=== PATIENT | female | born 1945 | race Caucasian/White ===

== ENCOUNTER 2017-01-13 15:18 | Outpatient (CLI) | payer MEDICARE ==
[~2017-01-13] VITALS: Ht 167.6 cm; Wt 63.6 kg
--- NOTE | ~2017-01-13 | HEMODYNAMI ---
PATIENT:RADHA DASH MEDICAL RECORD: [id number] : 45 [id number] ADMISSION DATE: 01/13/17 Generatedon:01/14/201710:19 Patient name: RADHA DASH Patient #: [id number] : 1945 Date of study: 01/14/2017 Page: Of Hemodynamic Procedure Report Patient Data Patient Demographics Procedure consent was obtained First Name: RADHA Gender: Female Last Name: HARDY : 1945 Patient #: [id number] Age: 71 year(s) Race: SSN: [id number] Additional ID: [id number] Contact details [address]: [address] [place] [address] State: [place] City: [place] Zip code: [address] Past Medical History Allergies Allergen Reaction Date Comments Reported Other allergy 01/14/2017 Latex, Prevacid Admission Admission Data Admission Date: 01/13/2017 Admission Time: 15:18 Arrival Date: 01/13/2017 Arrival Time: 15:18 Admit Source: Other Insurance Payor: Private Room #: [id number] health insurance Height (in.): 66 BSA: 1.72 (m2) Height (cm.): 167.64 BMI: 22.6 (kg/m2) Weight (lbs.): 140 Weight (kg.): 63.5 Lab Results Lab Result Date: 01/14/2017 Lab Result Time: 0:00 Biochemistry Name Units Result Min Max BUN mg/dl 22 --(----)-* 7 18 Creatinine mg/dl 1.1 --(--*-)-- 0.6 1.3 CBC Name Units Result Min Max Hemoglobin g/dl 13.4 -*(----)-- 13.5 17.5 Procedure Procedure Types Cath Procedure Diagnostic Procedure LHC LHC w/Coronaries w/Grafts PCI Procedure Coronary Stent Initial Miscellaneous Procedures Moderate Sedation up to 45 minutes Procedure Description Procedure Date Procedure Date: 01/14/2017 Procedure Start Time: 9:47 Procedure End Time: 10:12 Procedure Staff Name Function Billy Balderas MD Performing Physician Ana Horner RN Nurse Cierra Mosquera RT Monitor Maddy Bello RT Scrub Procedure Data Cath Procedure Fluoroscopy Diagnostic fluoroscopy Total fluoroscopy Time: 6.8 time: 6.8 min min Diagnostic fluoroscopy Total fluoroscopy dose: 708 dose: 708 mGy mGy Contrast Material Contrast Material Type Amount (ml) Isovue 300 122 Entry Location Entry Primary Successful Side Size Upsize Upsize Entry Closure Succes sful Closure Location (Fr) 1 (Fr) 2 (Fr) Remarks Device Remarks Femoral Right 5 Fr 6 Fr Exoseal artery Short Estimated blood loss: 5 ml Diagnostic catheters Device Type Used For End Catheter Placement Cordis 5Fr JL 4.0 Left Coronary Catheter (MP) Angiography Cordis 5Fr 3DRC Catheter Right Coronary (MP) Angiography Cordis 5Fr Pigtail LV Angiography Catheter (MP) Procedure Complications No complications Procedure Medications Medication Administration Route Dosage Oxygen NC 2 l/min Lidocaine 2% added to field 20 Heparin Flush Bag added to field 2 bags (1000units/500ml NS) 0.9% NaCl I.V. 100 ml/hr Versed I.V. 1 mg Fentanyl I.V. 50 mcg Versed I.V. 0.5 mg Fentanyl I.V. 25 mcg Vasotec 1.25 mg Heparin Bolus I.V. 4000 units Versed I.V. 0.5 mg Fentanyl I.V. 25 mcg Plavix P.O. 75 mg Hemodynamics Rest BSA: 1.72 (m2) HGB: 13.4 (g/dl) O2 Consumption: Estimated: 152.65 (ml/min) O2 Co nsumption indexed: Estimated:88.75 (ml/min/m) Heart Rate: 62 (bpm) Pressure Samples Time Site Value (mmHg) Purpose Heart Use Rate(bpm) 9:55 LV 193/11,17 Snapshot 58 9:56 AO 198/90(134) Pullback 60 9:56 LV 196/17,18 Pullback 60 Gradients Valve Time Site 1 Site 2 Mean SEP/DFP Peak To Heart Use (mmHg) (sec/min) Peak Rate (mmHg) (bpm) Aortic 9:56 LV AO 0 60 196/17,18 198/90(134) Calculations Valve P-P Mean Valve Index Valve Source Name Gradient Area Flow (cm2) Aortic 0 0 Snapshots Pre Cath Intra NCS Post Cath Vital Signs Time Heart Resp SPO2 etCO2 [id number] NIBP (mmHg) Rhythm Pain Sedatio n Rate (ipm) (%) (mmHg) (mmHg) Status Level (bpm) 9:38:06 63 15 100 0 0 No Cuff NSR 0 (11) 10(A) , No pain 9:42:12 62 16 100 0 0 204/106(175) NSR 0 (11) 10(A) , No pain 9:45:49 55 15 99 0 0 194/97(162) NSR 0 (11) 10(A) , No pain 9:50:13 53 19 100 0 0 203/93(181) NSR 0 (11) 10(A) , No pain 9:54:35 59 13 95 0 0 200/100(161) NSR 0 (11) 9(A) , No pain 10:00:03 60 17 96 0 0 187/86(152) NSR 0 (11) 9(A) , No pain 10:05:22 62 15 100 0 0 175/96(146) NSR 0 (11) 9(A) , No pain 10:10:50 74 16 100 0 0 188/106(156) NSR 0 (11) 10(A) , No pain Medications Time Medication Route Dose Verified Delivered Reason Notes Effectiveness by by 9:40:34 Oxygen NC 2 Billy Magdaie used for l/min [facility] meyers MD 9:40:42 Lidocaine 2% added 20ml Billy Billy for local to vial [facility] anesthetic field MD GOLD 9:40:49 Heparin Flush added 2 Billy Billy used for Bag to bags [facility] procedure (1000units/500ml field MD GOLD NS) 9:41:51 0.9% NaCl I.V. 100 Billy Magdaie Per physician ml/hr [facility] Horner RN, MD 9:42:00 Versed I.V. 1 mg Billy Magdaie for sedation [facility] Horner RN, MD 9:42:06 Fentanyl I.V. 50 Billy Magdaie for sedation mcg [facility] Horner RN, MD 9:48:52 Versed I.V. 0.5 Billy Manie for sedation mg [facility] Horner RN, MD 9:48:56 Fentanyl I.V. 25 Billy Perez for sedation mcg [facility] Horner RN, MD 9:51:01 Vasotec IV 1.25 Billy Perez Per physician mg [facility] Horner RN, MD 9:57:30 Heparin Bolus I.V. 4000 Billy Perez for verifi ed units [facility] Carlos Horner RN anticoagulation with dr MD hines 10:03:25 Versed I.V. 0.5 Billy Perez for sedation mg [facility] Carlos Horner RN, MD 10:03:30 Fentanyl I.V. 25 Billy Perez for sedation mcg [facility] Carlos Horner RN, MD 10:18:11 Plavix P.O. [address] [facility] Horner RN antiplatelet MD therapy Procedure Log Time Note 9::18 Informed consent obtained and on chart 9:: Admit Source: Other 9:: Arrival Date: 01/13/2017 3:18:00 PM 9:09:37 Insurance Payor : Private health insurance 9:10:17 Diagnostic Cath Status : Elective 9:11:05 Ana Horner RN sent for patient. Start room use. 9:11:06 Time tracking: Regular hours 9:11:11 Plan of Care:Hemodynamics will remain stable., Cardiac rhythm will remain stable., Comfort level will be maintained., Respiratory function will remain adequate., Patient/ family verbilizes understanding of procedure., Procedure tolerated without complication., Recovers from procedure without complications.. 9:18:57 Lab Result : Hemoglobin 13.4 g/dl 9:18:57 Lab Result : Creatinine 1.1 mg/dl 9:18:57 Lab Result : BUN 22 mg/dl 9:26:04 Patient received from Med II to CCL 1 Alert and oriented. Tansferred to table in Supine position. 9:26:06 Warm blankets applied, and nancy hugger turned on for patient comfort. 9:26:06 Correct patient and procedure confirmed by team. 9:26:07 ECG and BP/O2 sat monitors applied to patient. 9:33:13 ECG and BP/O2 sat monitors applied to patient. 9:33:15 Vital chart was started 9:33:16 Baseline sample Acquired. 9:33:21 Rhythm: sinus rhythm 9:33:23 Full Disclosure recording started 9:33:29 H&P Date Dictated: 01/14/2017 ER History on chart., New H&P dictated by physician.. 9:33:31 Pre-op teaching completed and patient verbalized understanding. 9:33:32 Pre-procedure instructions explained to patient. 9:33:33 Family in waiting room. 9:33:35 Patient NPO since Midnight. 9:33:55 Patient allergic to Other allergyLatex, Prevacid 9:34:00 Is the patient allergic to Iodine/contrast media? No. 9:34:03 Was the patient premedicated? No 9:34:05 Is patient on blood thinner?Yes 9:34:08 ACC The patient was administered the following blood thiners within the last 24 hours: ACCPlavix 9:34:10 Patient diabetic? Yes. 9:34:11 If diabetic: On Metformin? Yes 9:34:16 If on Metformin: Last Dose? 01/13/2017 9:34:22 Patient not . Patient is over age 55. 9:34:24 Previous problem with sedation/anesthesia? Yes throat adhesions 9:34:27 Snore? No 9:34:29 Sleep apnea? No 9:34:30 Deviated septum? No 9:34:30 Opens mouth fully? Yes 9:34:31 Sticks out tongue? Yes 9:34:38 Airway obstruction? Yes asthma 9:34:58 Dentures? No ? 9:35:03 Pre procedure: right dorsailis pedis pulse 1+ Palpable, but thready & weak; easily obliterated 9:35:06 Pre procedure: left dorsailis pedis pulse 2+ Normal; easily identifiable; not easily obliterated 9:35:15 Lab results completed and on chart. 9:35:22 Right groin area was prepped with chlora-prep and draped in sterile fashion 9:35:23 Alarms reviewed by R. N. 9:35:23 Sharps counted by scrub and verified by R.N. 9:35:25 Physician arrived 9:35:26 --------ALL STOP TIME OUT------ 9:35:27 Final Timeout: patient, procedure, and site verified with staff and physician. All members of the team are in agreement. 9:35:29 Right groin site verified by team. 9:35:33 Physical assessment completed. ASA score P 2 - A patient with mild systemic disease as per Billy Balderas MD. 9:35:37 Sedation plan: IV Moderate Sedation Versed, Fentanyl 9:38:07 Use device set Femoral Dx 9:38:08 Acist Syringe opened to sterile field. 9:38:09 Bag Decanter opened to sterile field. 9:38:09 Medline Cath Pack opened to sterile field. 9:38:10 Terumo 5Fr Sheridan Sheath opened to sterile field. 9:38:10 [facility] 260cm J .035 wire opened to sterile field. 9:38:11 Acist Hand Control opened to sterile field. 9:38:12 Acist Manifold opened to sterile field. 9:38:12 Diagnostic Infinity 5Fr Multipack catheter opened to sterile field. 9:38:12 Tegaderm 4 x 4 opened to sterile field. 9:39:01 Patient Weight : 140 kg 9:39:06 Patient Height : 66 cm 9:40:34 Oxygen 2 l/min NC was administered by Ana Horner RN; used for procedure; 9:40:42 Lidocaine 2% 20ml vial added to field was administered by Billy Balderas MD; for local anesthetic; 9:40:49 Heparin Flush Bag (1000units/500ml NS) 2 bags added to field was administered by Billy Balderas MD; used for procedure; 9:41:51 0.9% NaCl 100 ml/hr I.V. was administered by Ana Horner RN; Per physician; 9:42:00 Versed 1 mg I.V. was administered by Ana Horner RN; for sedation; 9:42:06 Fentanyl 50 mcg I.V. was administered by Ana Horner RN; for sedation; 9:47:25 Procedure started. 9:47:32 Local anesthetic to right femoral artery with Lidocaine 2% by Billy Balderas MD.INITIAL ACCESS ONLY 9:47:43 A 5 Fr sheath was inserted into the Right Femoral artery 9:47:51 A Cordis 5Fr JL 4.0 Catheter (JAMIE) was advanced over the wire and used for Left Coronary Angiography. 9:48:52 Versed 0.5 mg I.V. was administered by Ana Horner RN; for sedation; 9:48:56 Fentanyl 25 mcg I.V. was administered by Ana Horner RN; for sedation; 9:49:05 Zero performed for pressure channel P1 9:49:13 Zero performed for pressure channel P1 9:49:34 Injector settings: Ml/sec: 3, Volume: 6, 9:50:35 Zero performed for pressure channel P1 9:50:51 Catheter removed. 9:50:56 A Cordis 5Fr 3DRC Catheter (MP) was advanced over the wire and used for Right Coronary Angiography. 9:51:01 Vasotec 1.25 mg IV was administered by Ana Horner RN; Per physician; 9:51:43 RCA angiography performed. 9:51:46 Injector settings: Ml/sec: 3, Volume: 6, 9:51:56 SVG angiography performed. 9:52:50 BOBO angiography performed. 9:54:03 Catheter removed. 9:54:09 A Cordis 5Fr Pigtail Catheter (MP) was advanced over the wire and used for LV Angiography. 9:54:37 Terumo 6Fr Sheridan Sheath opened to sterile field. 9:54:37 [employer] BasixCompak Inflation Kit opened to sterile field. 9:54:38 Monterroso Whisper J 300cm 0.014 guide wire opened to sterile field. 9:56:00 LV hemodynamics recorded. 9:56:02 LV gram done using SNOW 9:56:04 Injector settings: Ml/sec: 5, Volume: 15, 9:56:19 EF : 55 % 9:56:21 Catheter removed. 9:56:22 Proceeding to intervention. 9:56:29 Sheath upsized to a 6 Fr Short. 9:57:04 Medtronic Launcher 6Fr AR 1.0 guide catheter opened to sterile field. 9:57:09 6 Fr ar 1 guide catheter was inserted over the wire 9:57:30 Heparin Bolus 4000 units I.V. was administered by Ana Horner RN; for anticoagulation; verified with dr hines 10:00:10 Guide Catheter removed. unable to cannulate vessel. 10:00:19 Medtronic Launcher 6Fr AR 1.0 SH guide catheter opened to sterile field. 10:00:56 6 Fr ar 1 sh guide catheter was inserted over the wire 10:03:25 Versed 0.5 mg I.V. was administered by Ana Horner RN; for sedation; 10:03:30 Fentanyl 25 mcg I.V. was administered by Ana Horner RN; for sedation; 10:04:02 whisper wire advanced. 10:04:06 Wire advanced across lesion. 10:05:48 Inflation Number: 1 A Reagan OTW 2.5 x 12 stent was prepped and advanced across the Dist RCA. The stent was deployed at 11 AZIZA for 0:10 (min:sec). 10:06:26 Stent catheter was removed intact over wire. 10:09:14 Inflation Number: 1 A Victoria OTW 3.0 x 18 stent was prepped and advanced across the Prox RCA. The stent was deployed at 16 AZIZA for 0:10 (min:sec). 10:09:37 Stent catheter was removed intact over wire. 10:09:38 Wire removed. 10:09:39 Guide catheter removed. 10:09:52 Cordis 6Fr Exoseal opened to sterile field. 10:10:04 Sheath removed intact; hemostasis achieved with Exoseal to the Right Femoral artery. 10:10:06 Procedure ended.(Physican Out) 10:10:48 Fluoroscopy time 06.80 minutes. 10:10:52 Fluoroscopy dose: 708 mGy 10:10:52 Flurop Dose total: 708 10:10:57 Contrast amount:Isovue 300 122ml. 10:10:59 Sharps counted by scrub and verified by R.N. 10:11:02 Insertion/operative site no bleeding no hematoma. 10:11:06 Post-op/insertion site Right Femoral artery dressed using a 4 x 4 and Tegaderm. 10:11:10 Post right femoral artery:stable 10:11:12 Post Procedure Pulses reassessed and unchanged 10:11:14 Post procedure rhythm: unchanged. 10:11:17 Estimated blood loss: 5 ml 10:11:18 Post procedure instruction explained to patient.Patient verbalizes understanding. 10:11:19 Patient needs reinforcement of post procedure teaching. 10:11:44 Procedure type changed to Cath procedure, Diagnostic procedure, LHC, LHC w/Coronaries w/Grafts, PCI procedure, Coronary Stent Initial, Miscellaneous Procedures, Moderate Sedation up to 45 minutes 10:11:45 Procedure and supply charges have been captured, reviewed, submitted and are correct. 10:11:49 Procedure Complication : No complications 10:11:52 Vital chart was stopped 10:11:52 See physician's report for complete and final results. 10:11:56 Report given to Med II. 10:11:59 Patient transfered to [facility] II with Stretcher. 10:12:02 Procedure ended. 10:12:02 Full Disclosure recording stopped 10:13:00 ACC-PCI Only Patient was given prescriptions, or instructed by Billy Balderas MD to start/continue the following medications upon discharge: Plavix 10:13:08 End room use (Document Last) 10:18:11 Plavix 75 mg P.O. was administered by Ana Horner RN; for antiplatelet therapy; Intervention Summary Intervention Notes Time ActionType Lesion and Equipment Action# Pressure Duration Attributes Used 10:05:48 Place stent Dist RCA Victoria OTW 1 11 00:10 2.5 x 12 stent 10:09:14 Place stent Prox RCA Victoria OTW 1 16 00:10 3.0 x 18 stent Device Usage Item Name Manufacture Quantity Catalog Hospital Part Current Minima l Lot# / Number Charge Number Stock Stock Serial# Code Acist Acist 1 22972 479842 280787 470815 20 Syringe Medical Systems Inc Bag Microtek 1 2002S 188117 21950 488839 5 DecSpecle Medical Inc. Medline Cardinal 1 [id number] 522912 62189 832903 5 Cath Pack Health Terumo 5Fr Terumo 1 [id number] 301361 315729 997672 [address] [facility] 1 046605 140611 427384 735465 30 260cm J .035 wire Acist Hand Acist 1 27782 336032 249709 747884 5 Control Medical Systems Inc Acist Acist 1 83333 900178 091553 312836 5 Desktop Genetics Medical Systems Inc Diagnostic Cardinal 1 [id number] 227827 23477 203606 30 Infinity Health 5Fr Multipack catheter Tegaderm 4 3M 1 1626W 497566 302913 615237 5 x 4 Cordis 5Fr Cardinal 1 327451 5 JL 4.0 Health Catheter (MP) Cordis 5Fr Cardinal 1 631658 5 3DRC Health Catheter (MP) Cordis 5Fr Cardinal 1 464232 5 Pigtail Health Catheter (MP) Terumo 6Fr Terumo 1 [id number] 595641 639860 179129 40 Sheridan Sheath Merit Merit 1 NF3412 835896 250722 028168 15 BasenGene Medical Inflation Kit Monterroso Monterroso 1 [id number] 507015 909329 656348 5 Whisper J Vascular 300cm 0.014 guide wire Medtronic Medtronic 1 [id number] 575760 49339 765806 1 Launcher 6Fr AR 1.0 guide catheter Medtronic Medtronic 1 [id number] 503523 35082 436855 1 Launcher 6Fr AR 1.0 SH guide catheter Reagan OTW Medtronic 1 [id number] 199286 19227 028533 5 [id number] 2.5 x 12 stent Reagan OTW Medtronic 1 [id number] 746463 2016298 333164 5 [id number] 3.0 x 18 stent Cordis 6Fr Cardinal 1 [id number] 540012 092651 890050 10 [facility] Yellowsmith Signature Audit [place] Stage Time Signature Unsigned Intra-Procedure 01/14/2017 Cierra Mosquera 10:19:20 AM RT(R) Signatures Monitor : Cierra Mosquera RT Signature : Date : Time : [id number] [place] [address]
[2017-01-13 16:32] LABS: BASOPHILS 0.5 % (0-2); EOSINOPHILS 3.7 % (0-7); HEMOGLOBIN 13.4 g/dL (12-16); IMMATURE GRANULOCYTES 0.2 % (0-5); LYMPHOCYTES 29.3 % (15-50); MCHC 33.5 g/dL (31.0-37.0); MCV 89.5 fL (80.0-100.0); MEAN PLATELET VOLUME 10.8 fL (7.4-10.4); MONOCYTES 8.4 % (2-11); NEUTROPHILS 57.9 % (40-80); PLATELET COUNT 250 10x3/uL (130-400); RBC 4.47 10x6/uL (4.00-5.40); RDW 14.3 % (11.5-14.5); WBC 6.5 10x3/uL (4.8-10.8)
[2017-01-13 16:41] LABS: ALBUMIN 3.7 g/dL (3.4-5.0); ALKALINE PHOSPHATASE 61 U/L (46-116); ALT (SGPT) 20 U/L (10-68); CALC OSMOLALITY 281 mosm/kg (275-300); CALCIUM 9.2 mg/dL (8.5-10.1); CARBON DIOXIDE 24.8 mmol/L (21.0-32.0); CHLORIDE - SERUM 103 mmol/L (98-107); CREATININE - SERUM 1.1 mg/dL (0.6-1.3); GLUCOSE 99 mg/dL (74-106); POTASSIUM - SERUM 3.8 mmol/L (3.5-5.1); PROTEIN - SERUM 6.9 g/dL (6.4-8.2); SODIUM 140 mmol/L (136-145); UREA NITROGEN 22 mg/dL (7-18); eGFR NON AFRICAN AMERICAN 52 mL/min (90-120)
[2017-01-13 16:54] LABS: CKMB 0.5 U/L (0.0-3.6); CREATINE KINASE 74 UL (21-215)
[2017-01-13] MEDS ORDERED: JARDIANCE25 MG PO (20:17)
[2017-01-13] MEDS ORDERED: BYSTOLIC5 MG PO (20:17)
[2017-01-13] MEDS ORDERED: ISOSORBIDE MONO30 M1 PO (20:17)
[2017-01-13] MEDS ORDERED: AMBIEN5 MG PO (20:19)
[2017-01-13] MEDS ORDERED: LISINOPRIL5 MG PO (20:23)
[2017-01-13] MEDS ORDERED: BAYER CHEWABLE81 MG PO (20:24)
[2017-01-13] MEDS ORDERED: NEURONTIN 300300 MG PO (20:27)
[2017-01-13 22:35] VITALS: Ht 167.6 cm; Wt 63.6 kg
[2017-01-14] VITALS: BP 148/72
[2017-01-14 04:00] VITALS: BP 181/82
--- NOTE | 2017-01-14 07:20 | NUR ---
PT SITTING UP IN BED DENIES ANY NEEDS WILL CONT TO MONITOR
[2017-01-14 08:39] VITALS: BP 182/87
--- NOTE | 2017-01-14 09:16 | NUR ---
PT PREOPED FOR HEART CATH. NO NITRO PASTE ON FLOOR. BUFFY BARRIOS FROM HEEL SEAT FITTER AWARE I DID NOT GIVE.
--- NOTE | 2017-01-14 10:43 | NUR ---
PT IS BACK FROM [employer] PROFESSOR ALERT AND AWAKE R GROIN SITE IS WNL AT BEDSIDE. VS ARE WNL WITH EXCEPTION OF ELEVATED BP, DR DENNISON AWARE AND ORDERED LISINOPRIL WILL GIVE. WILL CONT TO MONITOR.
[2017-01-14] MEDS ORDERED: PLAVIX75 MG PO (10:46)
[2017-01-14] MEDS ORDERED: LISINOPRIL10 MG PO (10:46)
[2017-01-14 11:29] LABS: BASOPHILS 0.8 % (0-2); EOSINOPHILS 4.7 % (0-7); HEMATOCRIT 39.1 % (36.0-48.0); IMMATURE GRANULOCYTES 0.2 % (0-5); LYMPHOCYTES 33.1 % (15-50); MCH 29.5 pg (26.0-34.0); MCHC 33.2 g/dL (31.0-37.0); MCV 88.9 fL (80.0-100.0); MEAN PLATELET VOLUME 10.7 fL (7.4-10.4); MONOCYTES 8.5 % (2-11); NEUTROPHILS 52.7 % (40-80); PLATELET COUNT 228 10x3/uL (130-400); RDW 14.1 % (11.5-14.5); WBC 5.1 10x3/uL (4.8-10.8)
[2017-01-14 11:36] LABS: ANION GAP 12.4 mmol/L (8-16); CALCIUM 8.7 mg/dL (8.5-10.1); CARBON DIOXIDE 26.7 mmol/L (21.0-32.0); CREATININE - SERUM 0.9 mg/dL (0.6-1.3); POTASSIUM - SERUM 4.1 mmol/L (3.5-5.1)
[2017-01-14 13:00] VITALS: BP 160/92
--- NOTE | 2017-01-14 14:40 | NUR ---
WENT OVER DC PAPERWORK WITH PT AND BOTH VERBALIZE UNDERSTANDING. DC PIV WITH CATH TIP INTACT. DC TELE. PT HAS SCRIPTS FOR PLAVIX AND LISINOPRIL. R GROIN SITE IS STILL WNL BP IS RESOLVED FROM 195/98 TO 156/86 NOW. WHEELED PT OUT TO FRONT ENTRANCE AND TOOK HER HOME
--- NOTE | 2017-01-16 10:28 | HP ---
PATIENT: RADHA DASH MEDICAL RECORD: [id number] ACCOUNT: [id number] LOCATION:[facility] : 45 ADMISSION DATE: 01/13/17 HISTORY AND PHYSICAL EXAMINATION HISTORY OF PRESENT ILLNESS: A 71-year-old female with a history of coronary disease, status post intervention, has a history of hypertension, postop CABG, sometimes hypoglottis and vocal cords difficulties with dysphagia and dysarthria, this improved somewhat although he may have been having more dyspnea on exertion. He had classic exertional angina, chest tightness and pressure. We are asked to see her concerning her cardiovascular status. PAST MEDICAL HISTORY: 1. He has a history of hypertension. 2. Hyperlipidemia. 3. Gastroesophageal reflux disease. 4. Diabetes mellitus. ALLERGIES: PREVACID AND LATEX. SOCIAL HISTORY: , lives in [place]. She is a nonsmoker. She takes care all of her ADLs. MEDICATIONS: Typically include Imdur 30 every day, lisinopril 5 q.h.s., Bystolic 5 every day, aspirin 81 every day, Neurontin 600 b.i.d., Ambien 5 q.h.s., Jardiance 5/25 every day. REVIEW OF SYSTEMS: The patient reports easy bruising but reports no swollen glands. The patient reports no fever, no night sweats, no significant weight gain, no significant weight loss. No significant exercise tolerance. The patient reports no dry eyes, no irritation, no vision change. Patient reports no difficulty hearing and no ear pain. Patient reports no frequent nose bleeds or nose and sinus problems. Patient reports on arm pain on exertion. No shortness of breath while lying down. No history of heart murmur. Patient reports no cough, no wheezing or coughing up blood. Patient reports no abdominal pain, no vomiting. Normal appetite. No diarrhea and not vomiting blood. No nausea and no constipation. Patient reports no incontinence. No difficulty urinating. No hematuria. No increased frequency. Patient reports no muscle aches. No weakness, no arthralgias, no back pain. No swelling of the extremities. Patient reports no abnormal mole, no jaundice, no rashes. Reports no loss of consciousness. No weakness and no numbness. No seizures, dizziness, or headaches. The patient reports no depression, no sleep disturbance, feeling safe in a relationship and no alcohol abuse. Patient reports on fatigue. Reports no runny nose or sinus pressure. No itching, no hives, and no frequent sneezing. PHYSICAL EXAMINATION: GENERAL: Pleasant gentleman in no acute distress, appears stated age. Speech is easily understandable. VITAL SIGNS: Blood pressure 182/87, pulse 60 and regular. HEENT: Normocephalic, atraumatic. NECK: No bruits noted. HEART: Regular. LUNGS: Good air excursion. ABDOMEN: Soft, nontender. HISTORY AND PHYSICAL [id number] RADHA DASH EXTREMITIES: Pulse are well preserved, 2+ with no edema. NEUROLOGIC: Grossly intact. DIAGNOSTIC DATA: ECG without acute change. IMPRESSION: Exertional angina of close to 4 years out from bypass grafting. PLAN: Diagnostic angiography, intervention based on the above. TRANSINT:[id number] Voice Confirmation ID: [id number] DOCUMENT ID: [id number] CRIS ORDONEZ MD at 1028 CC: [id number] DICTATION DATE: 01/14/17937 PSYCHIATRIC RN: 01/14/17 1012 DEP CLI 01/14/17 [facility] [address] [place] [address]
--- NOTE | 2017-01-16 10:28 | OP ---
PATIENT NAME: RADHA DASH MEDICAL RECORD: [id number] :45 LOCATION:D.CAT ADMISSION DATE: SURGEON: CRIS ORDONEZ MD DATE OF OPERATION: 01/14/2017 PROCEDURES: Left heart catheterization, selective coronary angiography, right femoral artery approach. CATHETERS: A 5-[place]izen [place] sheath, 5/4 left and right Hai, 5/4 pig. The procedure was well tolerated and the patient returned to the rush. Sheath removed. ExoSeal device placed. FINDINGS: Left ventriculography in 30-degree SNOW view: Normal wall motion, normal systolic function. CORONARY ANATOMY: LEFT MAIN: Left main is free of disease. LAD: Has minimal luminal irregularities, but no significant stenosis. CIRCUMFLEX: Again, seen filling via the bypass graft to the right coronary artery, somewhat codominant system. This has 2 sequential stenoses of 80%, 1 distally and 1 more diffuse more proximally, both were 80%. BYPASS GRAFTS: 1. Saphenous vein graft to circumflex is widely patent throughout its course without evidence of post-anastomotic stenosis. 2. BOBO to LAD is atretic. PLAN: Intervention of the right momentarily. DESCRIPTION OF PROCEDURE: A 5-[place]izen [place] sheath was changed for a 6-[place] sheath. AR guiding catheter with side holes provided good catheter support. A 300 cm Whisper wire was placed across both occlusions in the right coronary artery down to this portion of vessel. Distal stent deployed was a 2.5 x 12 Saucier drug-eluting stent up to 14 atmospheres and the more proximally with 3.0 x 18 Reagan drug-eluting stent addressed the diffuse 80% stenosis. Final angiography shows excellent resolution of two 80% stenoses and no significant residual. RAKESH flow was 3 throughout the procedure. There was actually nice pumping in the distal vasculature in the right coronary artery. Sheath was closed with ExoSeal device. TRANSINT:[id number] Voice Confirmation ID: [id number] DOCUMENT ID: [id number] CRIS ORDONEZ MD at 1028 CC: [id number] DICTATION DATE: 01/14/17 1020 AUTOCAD OPERATOR: 01/14/17 1113 DEP CLI 01/14/17 [id number] [place] [address]
== END 2017-01-14 14:44 | disposition home or self-care (01) ==
LOC: D.ER 15:18 → D.CATH 15:18 → EDSTATUS 19:01 → D.M2 19:05 → D.CATH 01-14 14:44
PROVIDERS: Emergency Medicine; Internal Medicine Interventional Cardiology
DX: I25.119 Atherosclerotic heart disease of native coronary artery with unspecified angina pectoris (principal); Z95.1 Presence of aortocoronary bypass graft; I10 Essential (primary) hypertension; E11.9 Type 2 diabetes mellitus without complications; E78.5 Hyperlipidemia, unspecified; K21.9 Gastro-esophageal reflux disease without esophagitis; Z01.812 Encounter for preprocedural laboratory examination
CPT/HCPCS: 93459; C9600

== ENCOUNTER 2018-08-16 11:18 | Outpatient (CLI) | payer OTHER ==
[~2018-08-16] VITALS: Ht 167.6 cm; Wt 61.4 kg
--- NOTE | ~2018-08-16 | OP ---
PATIENT NAME: RADHA DASH I MEDICAL RECORD: [id number] :45 LOCATION:D.CAT ADMISSION DATE: SURGEON: CRIS ORDONEZ MD DATE OF OPERATION: 08/16/2018 PROCEDURES: Left heart catheterization, selective coronary angiography, right femoral artery approach. CATHETERS: A 5-Stateless sheath, 5/4 left and right Hai, 5/4 pig. The procedure was tolerated. The patient returned to the rush. Sheath removed. ExoSeal device was placed. FINDINGS: Left ventriculography in 30-degree SNOW view: Normal wall motion. Normal systolic function. CORONARY ANATOMY: LEFT MAIN: Left main is free of disease. LAD: LAD shows luminal irregularities, but is free of flow obstructive disease. CIRCUMFLEX: Totally occluded, fills via a bypass graft. RIGHT CORONARY ARTERY: An area of previous stenting is widely patent. Between the 2 previously placed stents, had about 80% stenosis. Also, there is no end-stent restenosis at the distal portion of the distal stent. PLAN: Intervention momentarily. DESCRIPTION OF PROCEDURE: A 5-Stateless sheath was exchanged for a 6-Stateless sheath. AR with side holes provided good guide catheter support followed by 300 cm Whisper wire. Pre-deployment balloon was a 2.5 x 15 mm C[place]. Stents deployed were a 2.5 x 18 mm Reagan drug-eluting stent distally, at the area of end-stent restenosis and the stenosis between the 2 previously placed stents was addressed with a 3.0 x 15 mm [place] drug-eluting stent. Final angiography shows excellent resolution of a distal 90% stenosis and a mid 80% stenosis and no significant residual. RAKESH flow was 3 throughout the procedure. Integrilin was used during the case. Sheath closed with ExoSeal device. TRANSINT:[id number] Voice Confirmation ID: [id number] DOCUMENT ID: [id number] CRIS ORDONEZ MD CC: [id number] DICTATION DATE: 08/16/18 1337 PRESS SUPERVISOR: 08/16/18 1410 [facility] [address] [facility] [place] [address]
--- NOTE | ~2018-08-16 | HEMODYNAMI ---
PATIENT:RADHA DASH I MEDICAL RECORD: [id number] : 45 LOCATION:DJuanCAT ADMISSION DATE: 08/16/18 Generatedon:08/16/201813:38 Patient name: RADHA DASH Patient #: [id number] : 1945 Date of study: 08/16/2018 Page: Of Hemodynamic Procedure Report Patient Data Patient Demographics Procedure consent was obtained First Name: RADHA Gender: Female Last Name: HARDY : 1945 Middle Initial: I Age: 73 year(s) Patient #: [id number] Race: SSN: [id number] Additional ID: [id number] Contact details Address: [address] [place] [address] State: [place] City: [place] Zip code: [address] Past Medical History Allergies Allergen Reaction Date Comments Reported Other allergy 01/14/2017 Latex, Prevacid Other allergy 08/16/2018 LATEX, NEXIUM Admission Admission Data Admission Date: 08/16/2018 Admission Time: 11:18 Admit Source: Other Height (in.): 65.75 BSA: 1.69 (m2) Height (cm.): 167 BMI: 21.87 (kg/m2) Weight (lbs.): 134.48 Weight (kg.): 61 Lab Results Lab Result Date: 08/16/2018 Lab Result Time: 0:00 Biochemistry Name Units Result Min Max BUN mg/dl 25 --(----)-* 7 18 Creatinine mg/dl 1 --(--*-)-- 0.6 1.3 CBC Name Units Result Min Max Hemoglobin g/dl 11.7 *-(----)-- 13.5 17.5 Procedure Procedure Types Cath Procedure Diagnostic Procedure LHC LHC w/Coronaries w/Grafts Sedation Charges Moderate Sedation up to 15 minutes PCI Procedure Coronary Stent Coronary Stent Initial Procedure Description Procedure Date Procedure Date: 08/16/2018 Procedure Start Time: 13:09 Procedure End Time: 13:35 Procedure Staff Name Function Billy Giraldo MD Performing Physician Cierra Mosquera RT Scrub Sophie Leroy RN Nurse Eileen Tejeda RT Monitor Procedure Data Cath Procedure Fluoroscopy Diagnostic fluoroscopy Total fluoroscopy Time: 6.3 time: 6.3 min min Diagnostic fluoroscopy Total fluoroscopy dose: 697 dose: 697 mGy mGy Contrast Material Contrast Material Type Amount (ml) Isovue 300 118 Entry Location Entry Primary Successful Side Size Upsize Upsize Entry Closure Succes sful Closure Location (Fr) 1 (Fr) 2 (Fr) Remarks Device Remarks Femoral Right 5 Fr 6 Fr Exoseal artery Short Estimated blood loss: 10 ml Diagnostic catheters Device Type Used For End Catheter Placement MULTIPACK JL 4.0 5Fr Procedure catheter MULTIPACK 3DRC 5Fr Procedure catheter MULTIPACK Pigtail 5 Fr Procedure catheter Procedure Complications No complications Procedure Medications Medication Administration Route Dosage 0.9% NaCl I.V. 100 ml/hr Oxygen etCO2 Nasal cannula 2 l/min Lidocaine 2% added to field 20 Heparin Flush Bag added to field 2 bags (1000units/500ml NS) Versed I.V. 2 mg Fentanyl I.V. 50 mcg Heparin Bolus I.V. 5000 units Nitroglycerin IC/IA I.C. 200 mcg Hemodynamics Rest BSA: 1.69 (m2) HGB: 11.7 (g/dl) O2 Consumption: Estimated: 143.46 (ml/min) O2 Co nsumption indexed: Estimated:84.89 (ml/min/m) Heart Rate: 53 (bpm) Pressure Samples Time Site Value (mmHg) Purpose Heart Use Rate(bpm) 13:14 LV 152/9,15 Snapshot 55 Gradients Valve Time Site Site Mean SEP/DFP Peak To Heart Use 1 2 (mmHg) (sec/min) Peak Rate (mmHg) (bpm) Aortic 13:15 LV AO 54 Snapshots Pre Cath Intra NCS Post Cath Vital Signs Time Heart Resp SPO2 etCO2 NIBP (mmHg) Rhythm Pain Sedation Rate (ipm) (%) (mmHg) Status Level (bpm) 12:58:26 50 19 100 25.6 184/80(159) SB 0 (11) 10(A) , No pain 13:03:48 53 12 100 27 164/79(101) SB 0 (11) 10(A) , No pain 13:08:10 53 18 97 30 143/74(93) SB 0 (11) 9(A) , No pain 13:13:23 53 16 100 34 136/64(87) SB 0 (11) 9(A) , No pain 13:17:43 52 18 100 27.8 139/67(86) SB 0 (11) 9(A) , No pain 13:22:03 55 18 100 30 130/68(87) SB 0 (11) 9(A) , No pain 13:26:22 55 19 100 31.2 140/68(93) SB 0 (11) 9(A) , No pain 13:31:45 63 15 100 32.4 143/61(93) SB 0 (11) 10(A) , No pain 13:36:44 53 11 99 34.6 169/75(130) SB 0 (11) 10(A) , No pain Medications Time Medication Route Dose Verified Delivered Reason Notes Effectiveness by by 12:59:51 0.9% NaCl I.V. 100 Billy Barrios used for ml/hr [place] [facility] procedure MD MURPHY 12:59:58 Oxygen etCO2 2 Billy Copelanda used for Nasal l/min [place] [facility] procedure cannula MD MURPHY 13:00:05 Lidocaine 2% added 20ml Billy Cervantes for local to vial [facility] anesthetic field MD GOLD 13:00:09 Heparin Flush added 2 Billy Cervantes used for Bag to bags [facility] procedure (1000units/500ml field MD GOLD NS) 13:06:26 Versed I.V. 2 mg Billy Copelanda for sedation [facility] Leroy MD, RN 13:06:30 Fentanyl I.V. 50 Billy Copelanda for sedation mcg [facility] Leroy MD, RN 13:19:10 Heparin Bolus I.V. 5000 Billy Barrios for verif ied units [facility] anticoagulation with Dr. MD MURPHY [place] 13:30:28 Nitroglycerin I.C. 200 Billy Cervantes for IC/IA mcg [facility] Carlos mirza MD, MD Procedure Log Time Note 12:38:25 Informed consent obtained and on chart 12:38:29 Diagnostic Cath Status : Elective 12:39:10 Sophie Leroy RN sent for patient. Start room use. 12:39:12 Time tracking: Regular hours (M-F 7:00 - 5:00) 12:39:17 Plan of Care:Hemodynamics will remain stable., Cardiac rhythm will remain stable., Comfort level will be maintained., Respiratory function will remain adequate., Patient/ family verbilizes understanding of procedure., Procedure tolerated without complication., Recovers from procedure without complications.. 12:44:39 Admit Source: Other 12:44:43 Patient Height : 65.75 inches 12:44:48 Patient Weight : 134.48 lbs 12:45:09 Lab Result : Hemoglobin 11.7 g/dl 12:45:09 Lab Result : Creatinine 1 mg/dl 12:45:09 Lab Result : BUN 25 mg/dl 12:47:00 Patient received from Pre/Post Procedure Room to CCL 1 Alert and oriented. Tansferred to table in Supine position. 12:47:01 Warm blankets applied, and nancy hugger turned on for patient comfort. 12:47:01 Correct patient and procedure confirmed by team. 12:47:06 ECG and BP/O2 sat monitors applied to patient. 12:56:18 Vital chart was started 12:57:16 Baseline sample Acquired. 12:57:19 Rhythm: sinus bradycardia 12:57:21 Full Disclosure recording started 12:57:46 H&P Date Dictated: 08/14/2018 Within 30 days and on chart., H&P Addendum completed by physician on day of procedure. (MUST COMPLETE FOR ALL OUTPATIENTS). 12:57:48 Pre-procedure instructions explained to patient. 12:57:48 Pre-op teaching completed and patient verbalized understanding. 12:57:50 Family in patients room. 12:57:53 Family in patients room. 12:57:54 Patient NPO since Midnight. 12:58:16 Patient allergic to Other allergyLATEX, NEXIUM 12:58:21 Is patient on blood thinner?Yes 12:58:24 ACC The patient was administered the following blood thiners within the last 24 hours: ACCPlavix 12:58:26 Patient diabetic? No. 12:58:30 Patient not . Patient is over age 55. 12:58:39 Previous problem with sedation/anesthesia? No ? 12:58:49 Snore? Yes 12:58:50 Sleep apnea? No 12:58:51 Deviated septum? No 12:58:52 Opens mouth fully? Yes 12:58:53 Sticks out tongue? Yes 12:58:57 Airway obstruction? Yes ASTHMA 12:59:00 Dentures? No ? 12:59:02 Pre procedure: right dorsailis pedis pulse 2+ Normal; easily identifiable; not easily obliterated 12:59:05 Patient pain scale 0/10 ?. 12:59:09 IV patent on arrival in left hand with 0.9% NaCl at KVO. 12:59:11 Lab results completed and on chart. 12:59:14 Right groin area was prepped with chlora-prep and draped in sterile fashion 12:59:15 Alarms reviewed by R. N. 12:59:16 Sharps counted by scrub and verified by R.N. 12:59:24 Use device set Femoral Dx 12:59:25 ACIST Syringe (53652) opened to sterile field. 12:59:25 Bag Decanter (2002S) opened to sterile field. 12:59:26 ACIST Hand Control (77495) opened to sterile field. 12:59:27 ACIST Manifold (10880) opened to sterile field. 12:59:27 Tegaderm 4 x 4 (1626W) opened to sterile field. 12:59:29 Medline Cath Pack ([id number]) opened to sterile field. 12:59:29 DIAGNOSTIC WIRE .035 260cm J wire (181548) opened to sterile field. 12:59:30 DIAGNOSTIC Multipack 5Fr catheter set (KV6128) opened to sterile field. 12:59:31 SHEATH 5FR [place] (KLM168) opened to sterile field. 12:59:51 0.9% NaCl 100 ml/hr I.V. was administered by Sophie Leroy RN; used for procedure; 12:59:58 Oxygen 2 l/min etCO2 Nasal cannula was administered by Sophie Leroy RN; used for procedure; 13:00:05 Lidocaine 2% 20ml vial added to field was administered by Billy Giraldo MD; for local anesthetic; 13:00:09 Heparin Flush Bag (1000units/500ml NS) 2 bags added to field was administered by Billy Giraldo MD; used for procedure; 13:05:58 --------ALL STOP TIME OUT------ 13:05:59 Final Timeout: patient, procedure, and site verified with staff and physician. All members of the team are in agreement. 13:06:00 Right groin site verified by team. 13:06:02 Maximum allowable Isovue 300 dose 300ml. Physician notified. (300ml for normal creatinines. For patients with creatinine of 1.7 or higher multiply weight(kg) x 5 divided by creatinine.) 13:06:06 Fire Safety Assessment: A--An alcohol-based skin anteseptic being used preoperatively., C--Open oxygen or nitrous oxide is being used., D--An ESU, laser, or fiber-optic light is being used. 13:06:08 Physical assessment completed. ASA score P 2 - A patient with mild systemic disease as per Billy Giraldo MD. 13:06:11 Sedation plan: IV Moderate Sedation Medication:Versed, Fentanyl 13:06:26 Versed 2 mg I.V. was administered by Sophie Leroy RN; for sedation; 13:06:30 Fentanyl 50 mcg I.V. was administered by Sophie Leroy RN; for sedation; ::16 Procedure started. 13:09:26 Local anesthetic to right femoral artery with Lidocaine 2% by Billy Giraldo MD.INITIAL ACCESS ONLY 13:09:42 Zero performed for pressure channel P1 13:09:57 A 5 Fr sheath was inserted into the Right Femoral artery 13:10:33 A MULTIPACK JL 4.0 5Fr catheter was advanced over the wire and used for Procedure. 13:11:51 LCA angiography performed. 13:11:53 Catheter removed. 13:11:58 A MULTIPACK 3DRC 5Fr catheter was advanced over the wire and used for Procedure. 13:14:31 RCA angiography performed. 13:14:34 SVG to Circ angiography performed. 13:14:49 Catheter removed. 13:14:53 A MULTIPACK Pigtail 5 Fr catheter was advanced over the wire and used for Procedure. 13:15:02 LV gram done using SNOW 13:15:05 Injector settings: Ml/sec: 10, Volume: 20, 13:15:06 LV hemodynamics recorded. 13:15:10 EF : 55 % 13:15:43 Catheter removed. 13:16:00 SHEATH 6FR [place] (UFT231) opened to sterile field. 13:16:05 Sheath upsized to a 6 Fr Short. 13:16:16 WHISPER 300cm guide wire ([id number]) opened to sterile field. 13:16:21 INFLATOR Merit BasixCompak (DU0993) opened to sterile field. 13:16:30 GUIDE 6FR AR 1.0 SH catheter ([id number]) opened to sterile field. 13:16:32 6 Fr AR 1 SH guide catheter was inserted over the wire 13:19:07 WHISPER 300 wire advanced. 13:19:10 Heparin Bolus 5000 units I.V. was administered by Sophie Leroy RN; for anticoagulation; verified with Dr. Balderas 13:20:12 Wire advanced across lesion. 13:21:17 Inflate balloon Inflation number: 1 A EMERGE OTW 2.5 x 15 balloon ([id number]) was prepped and advanced across the Dist RCA, then inflated to 8 AZIZA for 0:15 (min:sec). 13:21:38 Inflation number: 2 The EMERGE OTW 2.5 x 15 balloon ([id number]) was reinflated across the Dist RCA, to 8 AZIZA for 0:15 (min:sec). 13:22:06 Inflation number: 3 The EMERGE OTW 2.5 x 15 balloon ([id number]) was reinflated across the Dist RCA, to 8 AZIZA for 0:10 (min:sec). 13:22:58 Inflation number: 4 The EMERGE OTW 2.5 x 15 balloon ([id number]) was reinflated across the Dist RCA, to 12 AZIZA for 0:15 (min:sec). 13:23:36 Inflation number: 1 The EMERGE OTW 2.5 x 15 balloon ([id number]) was reinflated across the Mid RCA, to 14 AZIZA for 0:15 (min:sec). 13:24:12 Balloon removed over the wire. 13:27:00 Place stent Inflation Number: 5 A CHANELL OTW 2.5 x 18 stent ([id number]) was prepped and advanced across the Dist RCA. The stent was deployed at 14 AZIZA for 0:15 (min:sec). 13:27:16 Stent catheter was removed intact over wire. 13:29:33 Place stent Inflation Number: 2 A CHANELL OTW 3.0 x 12 stent ([id number]) was prepped and advanced across the Mid RCA. The stent was deployed at 14 AZIZA for 0:25 (min:sec). 13:30:26 Stent catheter was removed intact over wire. 13:30:28 Nitroglycerin IC/IA 200 mcg I.C. was administered by Billy Giraldo MD; for vasodilation; 13:31:14 Wire removed. 13:31:15 Guide catheter removed. 13:31:20 EXOSEAL 6Fr (EX600) opened to sterile field. 13:31:52 Sheath removed intact; hemostasis achieved with Exoseal to the Right Femoral artery. 13:32:04 Procedure ended.(Physican Out) 13:32:23 Fluoroscopy time 06.30 minutes. 13:32:27 Flurop Dose total: 697 13:32:27 Fluoroscopy dose: 697 mGy 13:32:32 Contrast amount:Isovue 300 118ml. 13:32:34 Sharps counted by scrub and verified by R.N. 13:32:37 Post-op/insertion site Right Femoral artery dressed using a 4 x 4 and Tegaderm. 13:32:39 Post-procedure physical assessment completed. ASA score P 2 - A patient with mild systemic disease as per Billy Giraldo MD. 13:32:44 Post procedure rhythm: sinus bradycardia 13:32:47 Estimated blood loss: 10 ml 13:32:48 Post procedure instruction explained to patient.Patient verbalizes understanding. 13:32:49 Patient needs reinforcement of post procedure teaching. 13:33:40 Procedure type changed to Cath procedure, Diagnostic procedure, LHC, LHC w/Coronaries w/Grafts, Sedation Charges, Moderate Sedation up to 15 minutes, PCI procedure, Coronary Stent, Coronary Stent Initial 13:35:01 Procedure and supply charges have been captured, reviewed, submitted and are correct. 13:35:04 Procedure Complication : No complications 13:35:07 Vital chart was stopped 13:35:07 See physician's report for complete and final results. 13:35:09 Report given to Pre/Post Procedure Room. 13:35:22 Patient transfered to Pre/Post Procedure Room with Bed. 13:35:24 Procedure ended. 13:35:24 Full Disclosure recording stopped 13:35:27 End room use (Document Last) Intervention Summary Intervention Notes Time ActionType Lesion and Equipment Action# Pressure Duration Attributes Used 13:21:17 Inflate Dist RCA EMERGE OTW 1 8 00:15 balloon 2.5 x 15 balloon ([id number]) 13:21:38 Reinflate Dist RCA EMERGE OTW 2 8 00:15 balloon 2.5 x 15 balloon ([id number]) 13:22:06 Reinflate Dist RCA EMERGE OTW 3 8 00:10 balloon 2.5 x 15 balloon ([id number]) 13:22:58 Reinflate Dist RCA EMERGE OTW 4 12 00:15 balloon 2.5 x 15 balloon ([id number]) 13:23:36 Reinflate Mid RCA EMERGE OTW 1 14 00:15 balloon 2.5 x 15 balloon ([id number]) 13:27:00 Place stent Dist RCA CHANELL OTW 2.5 5 14 00:15 x 18 stent ([id number]) 13:29:33 Place stent Mid RCA CHANELL OTW 3.0 2 14 00:25 x 12 stent ([id number]) Device Usage Item Name Manufacture Quantity Catalog Number Hospital Part Current M inimal Lot# / Charge Number Stock Stock Serial# Code ACIST Syringe Acist 1 63606 052078 130389 733335 2 0 (94602) Medical Systems Inc Bag Decanter Microtek 1 2001S 344824 83111 167612 5 (2001S) Medical Inc. ACIST Hand Acist 1 28246 146996 597165 796260 5 Control Medical (40639) Systems Inc ACIST Acist 1 82148 917380 555743 114445 5 Manifold Medical (48403) Systems Inc Tegaderm 4 x 3M 1 1626W 035168 111903 674884 5 4 (1626W) Medline Cath Medline 1 [id number] 980193 33322 404445 5 Pack ([id number]) DIAGNOSTIC [facility] 1 656167 419359 291677 473793 3 0 WIRE .035 260cm J wire (447135) DIAGNOSTIC Cardinal 1 CI5699 977794 75261 300357 3 0 Multipack 5Fr Health catheter set (SK2246) SHEATH 5FR Terumo 1 RMB519 315002 947739 493190 5 [place] (ZOD869) MULTIPACK JL Cardinal 1 758337 5 4.0 5Fr Health catheter MULTIPACK Cardinal 1 157345 5 3DRC 5Fr Health catheter MULTIPACK Cardinal 1 060712 5 Pigtail 5 Fr Health catheter SHEATH 6FR Terumo 1 MHQ499 465556 727923 119973 4 0 [place] (LVZ456) WHISPER 300cm Monterroso 1 [id number] 647115 049036 425672 5 guide wire Vascular ([id number]) INFLATOR Merit 1 QT5064 326452 723387 444433 1 5 [facility] Medical BasixCompak (EE2035) EMERGE OTW [place] 1 [id number] 841041 521395 990031 5 [id number] 2.5 x 15 Scientific balloon ([id number]) CHANELL OTW 2.5 Medtronic 1 [id number] 013154 64013 399740 5 [id number] x 18 stent ([id number]) CHANELL OTW 3.0 Medtronic 1 [id number] 236978 6195927 450453 5 [id number] x 12 stent ([id number]) EXOSEAL 6Fr Cardinal 1 EX600 321766 090083 432370 1 0 (EX600) Health GUIDE 6FR AR Medtronic 1 [id number] 423743 95244 160799 1 1.0 SH catheter ([id number]) Signature Audit [place] Stage Time Signature Unsigned Intra-Procedure 08/16/2018 Eileen Tejeda 1:38:45 PM RT(R) Signatures Monitor : Eileen Tejeda Signature : RT Date : Time : [place] [id number] [place] [address]
[~2018-08-16 11:18] MED LIST: AMBIEN5 MG PO; BAYER CHEWABLE81 MG PO; BYSTOLIC5 MG PO; ISOSORBIDE MONO30 M1 PO; JARDIANCE25 MG PO; LISINOPRIL10 MG PO; LISINOPRIL5 MG PO; NEURONTIN 300300 MG PO; PLAVIX75 MG PO
[2018-08-16] MEDS ORDERED: LISINOPRIL5 MG PO (11:39)
[2018-08-16] MEDS ORDERED: GLUCOPHAGE1000 MG PO (11:39)
[2018-08-16] MEDS ORDERED: LOPRESSOR25 MG PO (11:39)
[2018-08-16] MEDS ORDERED: PROTONIX40 MG PO (11:40)
[2018-08-16] MEDS ORDERED: CRESTOR5 MG PO (11:40)
[2018-08-16] MEDS ORDERED: ACETAMINOPHEN325 MG PO (11:41)
[2018-08-16] MEDS ORDERED: VITAMIN D5000 UNIT PO (11:42)
[2018-08-16] MEDS ORDERED: ACIDOPHILUS-PE1 EACH PO (11:43)
[2018-08-16] MEDS ORDERED: ESTRACE1 MG PO (11:44)
[2018-08-16] MEDS ORDERED: STOOL SOFTENER100 M1 PO (11:44)
[2018-08-16 11:52] VITALS: BP 121/73; Ht 167.6 cm; Wt 61.4 kg
[2018-08-16 12:04] LABS: BASOPHILS 0.6 % (0-2); EOSINOPHILS 1.9 % (0-7); HEMATOCRIT 36.9 % (36.0-48.0); HEMOGLOBIN 11.7 g/dL (12-16); LYMPHOCYTES 35.9 % (15-50); MCH 28.4 pg (26.0-34.0); MCHC 31.7 g/dL (31.0-37.0); MCV 89.6 fL (80.0-100.0); MEAN PLATELET VOLUME 10.2 fL (7.4-10.4); MONOCYTES 7.4 % (2-11); NEUTROPHILS 54.2 % (40-80); PLATELET COUNT 225 10x3/uL (130-400); RBC 4.12 10x6/uL (4.00-5.40); RDW 14.1 % (11.5-14.5); WBC 5.4 10x3/uL (4.8-10.8)
[2018-08-16 12:15] LABS: ANION GAP 12.6 mmol/L (8-16); CALCIUM 8.9 mg/dL (8.5-10.1); CARBON DIOXIDE 28.5 mmol/L (21.0-32.0); POTASSIUM - SERUM 4.1 mmol/L (3.5-5.1)
--- NOTE | 2018-08-16 14:03 | NUR ---
RECEIVED PT FROM BREAD ROOM HAND. PT IS DROWSY, DENIES ANY C/O PAIN OR NAUSEA. DRESSING IS CDI TO RIGHT GROIN, AREA IS SOFT AND NONTENDER. PEDAL PULSES PALPABLE. SINUS EUFEMIA AT 51, BP IS 176/74, RESP WITRH EASE ON O2 AT 2LPM VIA NC. HOB IS FLAT, PT INSTRUCTED TO KEEP HEAD FLAT TO PILLOW AND RIGHT LEG STRAIGHT AND VERBALIZES UNDERSTANDING. AT BEDSIDE, CALL LIGHT IN REACH.
--- NOTE | 2018-08-16 14:14 | NUR ---
PT SLEEPING, RESP WITH EASE ON O2 AT 2LPM VIA NC. DRESSING IS CDI TO RIGHT GROIN, PEDAL PULSES PALPABLE. SINUS EUFEMIA AT 49. AT BEDSIDE, HOB IS FLAT.
--- NOTE | 2018-08-16 14:43 | NUR ---
PT AWAKE, DENIES ANY C/O. DRESSING CDI, PULSES PALPABLE. SINUS EUFEMIA AT 47, DENIES ANY C/O CHEST PAIN. HOB FLAT.
--- NOTE | 2018-08-16 15:31 | NUR ---
PT ALERT, DENIES ANY C/O. JEROME PO FLUIDS WITH NO NAUSEA. DRESSING CDI TO RIGHT GROIN, AREA IS SOFT AND NONTENDER. PEDAL PULSES PALPABLE.
--- NOTE | 2018-08-16 16:10 | NUR ---
PT IS ALERT, DENIES ANY C/O. SINUS EUFEMIA AT 48. DRESSING CDI, PULSES PALPABLE. HOB FLAT.
--- NOTE | 2018-08-16 16:36 | NUR ---
DRESSING CDI, PEDAL PULSES PALPABLE. HOB ELEVATED 30 DEGREES, SANDWICH AND PUDDING SERVED.
--- NOTE | 2018-08-16 16:59 | NUR ---
DRESSING REMAINS CDI, PULSES PALPABLE. VSS. HOB IS FULLY ELEVATED. PT HAS JEROME SANDWICH AND PO FLUIDS WITH NO NAUSEA. DC INSTRUCTIONS REVIEWED WITH PT AND WHO VERBALIZE UNDERSTANDING.
--- NOTE | 2018-08-16 17:15 | NUR ---
DRESSING REMAINS CDI, PT DENIES ANY C/O. IV DC'D WITH CATH INTACT AND PT IS DRESSING FOR DC WITH ASSIST.
--- NOTE | 2018-08-16 17:36 | NUR ---
PT HAS DRESSED FOR DC TO HOME. IS ALERT AND DENIES ANY C/O. AMBULTED TO THE BATHROOM AND VOIDED QS. PT ESCORTED TO PRIVATE AUTO VIA WC BY NURSE WITH DRIVING HER HOME. PT HAS ALL PERSONAL BELONGINGS AND DC INSTRUCTIONS AT TIME OF DISCHARGE.
== END 2018-08-16 17:30 | disposition home or self-care (01) ==
LOC: D.CATH 11:18
PROVIDERS: ATTEND Internal Medicine Interventional Cardiology
DX: I25.119 Atherosclerotic heart disease of native coronary artery with unspecified angina pectoris (principal); Z95.5 Presence of coronary angioplasty implant and graft; Z01.812 Encounter for preprocedural laboratory examination
CPT/HCPCS: 93459; C9600

== ENCOUNTER → 2019-02-28 09:38 | Outpatient (CLI) | payer OTHER ==
[2018-08-16 11:52] VITALS: BMI 21.8
[~2019-02-28 09:38] MED LIST changes: +ACETAMINOPHEN325 MG PO; +ACIDOPHILUS-PE1 EACH PO; +CRESTOR5 MG PO; +ESTRACE1 MG PO; +GLUCOPHAGE1000 MG PO; +LOPRESSOR25 MG PO; +PROTONIX40 MG PO; +STOOL SOFTENER100 M1 PO; +VITAMIN D5000 UNIT PO
--- NOTE | 2019-03-04 13:29 | EC ---
PATIENT:RADHA DASH I DATE OF SERVICE: 02/28/19 SEX: F MEDICAL RECORD: [id number] DATE OF : 45 LOCATION:D.LTAC, LOCATED [facility]IN [facility] AGE OF PATIENT: 73 ADMISSION DATE: 02/28/19 REFERRING PHYSICIAN: INTERPRETING PHYSICIAN: CRIS ORDONEZ MD ECHOCARDIOGRAM REPORT ECHO CHARGES 4 ECHO COMPLETE Date: 02/28/19 CLINICAL DIAGNOSIS: HTN/ASSESS EF/VAVLES ECHOCARDIOGRAPHIC MEASUREMENTS (adult normal given) AC root (d.<3.7cm) 2.9 cm LV Septum d (<1.2 cm> 1.0 cm Valve Excursion 1.2 cm LV Septum (systole) 1.4 cm Left Atria (s.<4.0cm> 3.8 cm LVPW d(<1.2cm) 1.4 cm RV (d.<2.3cm) 3.2 cm LVPW (sytole) 1.6 cm LV diastole(<5.6CM) 4.0 cm MV E-F(>70mm/sec) cm LV systole 2.4 cm LVOT Diameter 1.8 cm MV exc.(>10mm) 0.60 cm Est.ejection fraction (50-75%) % DOPPLER: LVIT cm/sec A 70.0 cm/sec E 87.0 cm/sec LA cm/sec RVSP 33 mmHg LVOT 79 cm/sec AOP1/2T m/s Asc. Ao 102 cm/sec RVOT 54 cm/sec RA cm/sec PA 98 cm/sec AV Gradient Peak 4.20 mmHg AV Mean 2.13 mmHg AV Area 2.0 cm MV Gradient Peak 3.14 mmHg MV Mean 1.13 mmHg MV Area cm COMMENTS: Room Attendants: 2 PHUC BIRD Scalehouse Attendant: 3 Dr. Balderas TAPE# PACS Pericardial Effusion N DATE OF SERVICE: Adequate 2D, color flow, spectral Doppler, and M-Mode. No LVH. LV internal dimensions are normal. Wall motion is normal. EF is greater than or equal to 55%. Aortic valve is tricuspid. No evidence of stenosis by Doppler interrogation. Left atrium is normal at 3.8 cm. Mitral valve shows no prolapse. Mild MR. Right-sided chambers grossly normal. Fzog-pp-jeroedkm TR. TRANSINT:[id number] Voice Confirmation ID: [id number] DOCUMENT ID: [id number] ECHOCARDIOGRAM REPORT [id number] RADHA DASH,CRIS Baker MD at 1329 CC: [id number] DICTATION DATE: 02/28/19 1346 ASSISTANT GM OF CONTENT & DELIVERY: 02/28/19 1405 DEP CLI 02/28/19 [address] [id number] [place] [address]
== END | disposition home or self-care (01) ==
LOC: D.HCCECHO 09:30
PROVIDERS: ATTEND Internal Medicine Interventional Cardiology
DX: I10 Essential (primary) hypertension (principal)

== ENCOUNTER → 2019-09-17 09:22 | Outpatient (CLI) | payer OTHER ==
[2018-08-16 11:52] VITALS: BMI 21.8
== END | disposition home or self-care (01) ==
LOC: D.HCCARDIO 09:22
PROVIDERS: ATTEND Internal Medicine Cardiovascular Disease
DX: I25.709 Atherosclerosis of coronary artery bypass graft(s), unspecified, with unspecified angina pectoris (principal)

== ENCOUNTER 2019-10-22 11:53 | Outpatient (CLI) | payer OTHER ==
[~2019-10-22] VITALS: Ht 167.6 cm; Wt 59.1 kg
--- NOTE | ~2019-10-22 | HEMODYNAMI ---
PATIENT:RADHA DASH I MEDICAL RECORD: [id number] : 45 LOCATION:D.CAT ADMISSION DATE: 10/22/19 Generatedon:10/22/201913:53 Patient name: RADHA DASH Patient #: [id number] : 1945 Date of study: 10/22/2019 Page: Of Hemodynamic Procedure Report Patient Data Patient Demographics Procedure consent was obtained First Name: RADHA Gender: Female Last Name: HARDY : 1945 Middle Initial: I Age: 74 year(s) Patient #: [id number] Race: SSN: [id number] Additional ID: [id number] Contact details [address]: [address] [place] [address] State: [place] City: [place] Zip code: [address] Past Medical History Allergies Allergen Reaction Date Comments Reported Other allergy 01/14/2017 Latex, Prevacid Other allergy 08/16/2018 LATEX, NEXIUM Other allergy 10/22/2019 latex, nexium Admission Admission Data Admission Date: 10/22/2019 Admission Time: 11:53 Arrival Date: 10/22/2019 Arrival Time: 13:30 Admit Source: Other Insurance Payor: Private health insurance [facility] #: [id number] Lab Results Lab Result Date: 10/22/2019 Lab Result Time: 0:00 Biochemistry Name Units Result Min Max BUN mg/dl 19 --(----)*- 7 18 Creatinine mg/dl 1.1 --(--*-)-- 0.6 1.3 eGFR ml/min 51 *-(----)-- 90 120 NONAFRICAN CBC Name Units Result Min Max Hematocrit % 39.1 -*(----)-- 42 54 Hemoglobin g/dl 12.2 *-(----)-- 13.5 17.5 Procedure Procedure Types Cath Procedure Diagnostic Procedure LHC LHC w/Coronaries Sedation Charges Moderate Sedation up to 15 minutes PCI Procedure Hemochron ACT Test Peripheral Cath Diagnostic Procedure In Flight Technician Peripheral Procedures Renal Arteriogram Procedure Description Procedure Date Procedure Date: 10/22/2019 Procedure Start Time: 13:25 Procedure End Time: 13:48 Procedure Staff Name Function Billy Giraldo MD Performing Physician Sandy Simon RT Monitor Cierra Mosquera RT Scrub Ana Horner RN Nurse Procedure Data Cath Procedure Fluoroscopy Diagnostic fluoroscopy Total fluoroscopy Time: 7.4 time: 7.4 min min Diagnostic fluoroscopy Total fluoroscopy dose: 922 dose: 922 mGy mGy Contrast Material Contrast Material Type Amount (ml) Isovue 370 153 Entry Location Entry Primary Successful Side Size Upsize Upsize Entry Closure Succes sful Closure Location (Fr) 1 (Fr) 2 (Fr) Remarks Device Remarks Femoral Right 5 Fr 6 Fr Exoseal artery Short Estimated blood loss: 10 ml Diagnostic catheters Device Type Used For End Catheter Placement MULTIPACK JL 4.0 5Fr Procedure catheter MULTIPACK 3DRC 5Fr Procedure catheter MULTIPACK Pigtail 5 Fr Procedure catheter Procedure Complications No complications Procedure Medications Medication Administration Route Dosage Oxygen etCO2 Nasal cannula 2 l/min Lidocaine 2% added to field 20 Heparin Flush Bag added to field 2 bags (1000units/500ml NS) 0.9% NaCl I.V. 100 ml/hr Zofran I.V. 4 mg Versed I.V. 1 mg Fentanyl I.V. 25 mcg Heparin Bolus I.V. 4000 units Hemodynamics Rest HGB: 12.2 (g/dl) Heart Rate: 52 (bpm) Pressure Samples Time Site Value (mmHg) Purpose Heart Use Rate(bpm) 13:32 LV 144/2,8 Snapshot 56 Gradients Valve Time Site Site Mean SEP/DFP Peak To Heart Use 1 2 (mmHg) (sec/min) Peak Rate (mmHg) (bpm) Aortic 13:33 LV AO 55 Snapshots Pre Cath Intra NCS Post Cath Vital Signs Time Heart Resp SPO2 NIBP (mmHg) Rhythm Pain Sedation Rate (ipm) (%) Status Level (bpm) 13:16:24 50 11 99 215/100(185) SB 0 (11) 10(A) , No pain 13:21:02 49 11 97 185/81(105) SB 0 (11) 10(A) , No pain 13:25:33 49 13 96 180/73(150) SB 0 (11) 9(A) , No pain 13:30:03 50 12 100 180/68(117) SB 0 (11) 9(A) , No pain 13:34:29 48 16 100 172/75(142) SB 0 (11) 9(A) , No pain 13:38:56 50 37 100 160/69(88) SB 0 (11) 9(A) , No pain 13:43:16 45 28 100 156/73(92) SB 0 (11) 9(A) , No pain 13:48:43 49 14 98 179/67(119) SB 0 (11) 10(A) , No pain Medications Time Medication Route Dose Verified Delivered Reason Notes Effectiveness by by 13:15:58 Oxygen etCO2 2 Billy Perez used for Nasal l/min [facility] Carlos Horner RN procedure cannula 13:16:05 Lidocaine 2% added 20ml Billy Cervantes for local to vial [facility] anesthetic field MD GOLD 13:16:10 Heparin Flush added 2 Billy Monteiroory used for Bag to bags [facility] procedure (1000units/500ml field MD GOLD NS) 13:16:18 0.9% NaCl I.V. 100 Billy Perez Per physician ml/hr [facility] Carlos Horner RN, MD 13:16:26 Zofran I.V. 4 mg Billy Perez Per physician [facility] Carlos Horner RN, MD 13:21:33 Versed I.V. 1 mg Billy Perez for sedation St Carlos Horner RN, MD 13:21:39 Fentanyl I.V. 25 Billy Perez for sedation mcg St Carlos Horner RN, MD 13:36:11 Heparin Bolus I.V. 4000 Billy Perez for verif ied units [facility] Carlos Horner RN anticoagulation with dr MD hines Procedure Log Time Note 12:54:35 Diagnostic Cath Status : Elective 12:56:23 Arrival Date: 10/22/2019 1:30:00 PM 12:57:01 Admit Source: Other 12:57:05 Insurance Payor : Private health insurance 12:57:59 Ana Horner RN sent for patient. Start room use. 12:58:00 Time tracking: Regular hours (M-F 7:00 - 5:00) 12:58:04 Plan of Care:Hemodynamics will remain stable., Cardiac rhythm will remain stable., Comfort level will be maintained., Respiratory function will remain adequate., Patient/ family verbilizes understanding of procedure., Procedure tolerated without complication., Recovers from procedure without complications.. 13:04:17 Procedure Status Elective Heart Cath (OP). 13:04:26 Patient received from Pre/Post Procedure Room to CCL 2 Alert and oriented. Tansferred to table in Supine position. 13:04:27 Warm blankets applied, and nancy hugger turned on for patient comfort. 13:04:29 Signed procedure consent form obtained from patient. 13:04:30 Correct patient and procedure confirmed by team. 13:04:30 ECG and BP/O2 sat monitors applied to patient. 13:04:52 H&P Date Dictated: 10/03/2019 Within 30 days and on chart.. 13:04:53 Pre-procedure instructions explained to patient. 13:04:54 Pre-op teaching completed and patient verbalized understanding. 13:04:57 Family in waiting room. 13:04:59 Patient NPO since Midnight. 13:05:19 Patient allergic to Other allergylatex, nexium 13:05:22 Is the patient allergic to Iodine/contrast media? No. 13:05:30 Patient pain scale 0/10 ?. 13:05:32 Alarms reviewed by R. N. 13:05:32 Sharps counted by scrub and verified by R.N. 13:05:35 Lab results completed and on chart. 13:05:38 Stress Test: no; N/A ? 13:05:48 Was the patient premedicated? Yes 13:05:52 Is patient on blood thinner?Yes 13:05:55 ACC The patient was administered the following blood thiners within the last 24 hours: ACCPlavix 13:05:59 Patient diabetic? Yes. 13:13:59 Vital chart was started 13:14:00 Full Disclosure recording started 13:14:03 Baseline sample Acquired. 13:14:06 Rhythm: sinus bradycardia 13:14:11 If diabetic: On Metformin? Yes 13:14:26 If on Metformin: Last Dose? 10/20/2019 13:14:28 ----Pre-sedation anethsthesia assessment.---- 13:14:32 Previous problem with sedation/anesthesia? No ? 13:14:34 Snore? Yes 13:14:35 Sleep apnea? No 13:14:36 Deviated septum? No 13:14:37 Opens mouth fully? Yes 13:14:38 Sticks out tongue? Yes 13:14:40 Airway obstruction? No ? 13:14:42 Dentures? No ? 13:14:44 Pre procedure: right dorsailis pedis pulse 2+ Normal; easily identifiable; not easily obliterated 13:14:52 IV patent on arrival in left antecubital with 0.9% NaCl at [facility]. 13:14:58 Right groin area was prepped with chlora-prep and draped in sterile fashion 13:15:58 Oxygen 2 l/min etCO2 Nasal cannula was administered by Ana Horner RN; used for procedure; Verbal order read back and verified. 13:16:05 Lidocaine 2% 20ml vial added to field was administered by Billy Giraldo MD; for local anesthetic; Verbal order read back and verified. 13:16:10 Heparin Flush Bag (1000units/500ml NS) 2 bags added to field was administered by Billy Giraldo MD; used for procedure; Verbal order read back and verified. 13:16:18 0.9% NaCl 100 ml/hr I.V. was administered by Ana Horner RN; Per physician; Verbal order read back and verified. 13:16:26 Zofran 4 mg I.V. was administered by Ana Horner RN; Per physician; Verbal order read back and verified. 13:17:35 Lab Result : BUN 19 mg/dl 13:17:35 Lab Result : Creatinine 1.1 mg/dl 13:17:35 Lab Result : eGFR NONAFRICAN 51 ml/min 13:17:35 Lab Result : Hemoglobin 12.2 g/dl 13:17:35 Lab Result : Hematocrit 39.1 % 13:18:24 Baseline sample Acquired. 13:18:47 Use device set Femoral Dx 13:18:49 ACIST Syringe (40909) opened to sterile field. 13:18:49 Bag Decanter (2002) opened to sterile field. 13:18:50 Medline Cath Pack ([id number]) opened to sterile field. 13:18:51 ACIST Hand Control (35423) opened to sterile field. 13:18:52 ACIST Manifold (87433) opened to sterile field. 13:18:53 DIAGNOSTIC Multipack 5Fr catheter set (QY2232) opened to sterile field. 13:18:54 SHEATH 5FR Ottosen (OUU418) opened to sterile field. 13:18:55 EMERALD Guide Wire (144-834) opened to sterile field. 13:19:05 --------ALL STOP TIME OUT------ 13:19:06 Final Timeout: patient, procedure, and site verified with staff and physician. All members of the team are in agreement. 13:19:08 Right groin site verified by team. 13:19:11 Fire Safety Assessment: A--An alcohol-based skin anteseptic being used preoperatively., C--Open oxygen or nitrous oxide is being used., D--An ESU, laser, or fiber-optic light is being used. 13:19:14 Physical assessment completed. ASA score P 2 - A patient with mild systemic disease as per Billy Giraldo MD. 13:19:17 3a) 45-59 Moderately reduced kidney function. 13:19:20 Maximum allowable contrast dose (3.7 X eGFR X 0.75)142 ml. 13:19:24 Sedation plan: IV Moderate Sedation Medication:Versed, Fentanyl 13:21:33 Versed 1 mg I.V. was administered by Ana Horner RN; for sedation; Verbal order read back and verified. 13:21:39 Fentanyl 25 mcg I.V. was administered by Ana Horner RN; for sedation; Verbal order read back and verified. 13:24:35 Procedure started. 13:25:02 Local anesthetic to right femoral artery with Lidocaine 2% by Billy Giraldo MD.INITIAL ACCESS ONLY 13:25:34 A 5 Fr sheath was inserted into the Right Femoral artery 13:26:18 A MULTIPACK JL 4.0 5Fr catheter was advanced over the wire and used for Procedure. 13:26:45 LCA angiography performed. 13:26:48 Injector settings: Ml/sec: 3, Volume: 6, 13:27:24 Catheter removed. 13:27:31 A MULTIPACK 3DRC 5Fr catheter was advanced over the wire and used for Procedure. 13:27:37 Injector settings: Ml/sec: 3, Volume: 6, 13:29:27 SVG to Circ angiography performed. 13:29:47 Injector settings: Ml/sec: 3, Volume: 6, 13:30:09 Left renal angiography performed. 13:30:22 Right renal angiography performed. 13:30:59 Injector settings: Ml/sec: 3, Volume: 6, 13:31:02 Catheter removed. 13:31:31 A MULTIPACK Pigtail 5 Fr catheter was advanced over the wire and used for Procedure. 13:32:10 LV gram done using SNOW 13:32:38 Injector settings: Ml/sec: 5, Volume: 15, 13:32:43 LV hemodynamics recorded. 13:33:05 EF : 55 % 13:33:07 Catheter removed. 13:33:10 Proceeding to intervention. 13:33:16 Use device set [place]LANDO PCI 13:33:19 INFLATOR Merit BasixCompak (IQ3840) opened to sterile field. 13:33:21 WHISPER 300cm guide wire ([id number]) opened to sterile field. 13:33:24 SHEATH 6FR Ottosen (XJL600) opened to sterile field. 13:33:38 Sheath upsized to a 6 Fr Short. 13:34:20 GUIDE 6FR JR 4.0 catheter (VN4LZ65) opened to sterile field. 13:34:59 6 Fr JR 4.0 guide catheter was inserted over the wire 13:35:14 WHISPER 300 wire advanced. 13:36:11 Heparin Bolus 4000 units I.V. was administered by Ana Horner RN; for anticoagulation; verified with dr hines Verbal order read back and verified. 13:38:28 Procedure type changed to Cath procedure, Diagnostic procedure, LHC, LHC w/Coronaries, Sedation Charges, Moderate Sedation up to 15 minutes, PCI procedure, Hemochron ACT Test, Peripheral Cath Diagnostic Procedure, In Flight Technician Peripheral Procedures, Renal Arteriogram 13:40:46 Place stent Inflation Number: 1 A CHANELL OTW 4.0 x 12 stent ([id number]) was prepped and advanced across the Proximal Renal, Right . The stent was deployed at 14 AZIZA for 0:22 (min:sec) . 13:42:03 Stent catheter was removed intact over wire. 13:42:04 Wire removed. 13:42:04 Guide catheter removed. 13:42:29 5 Fr 3DRC guide catheter was inserted over the wire 13:43:02 Right renal angiography performed. 13:44:45 EXOSEAL 6Fr (EX600) opened to sterile field. 13:44:57 Guide catheter removed. 13:45:07 Sheath removed intact; hemostasis achieved with Exoseal to the Right Femoral artery. 13:45:14 Fluoroscopy time 07.40 minutes. 13:45:17 Fluoroscopy dose: 922 mGy 13:45:17 Flurop Dose total: 922 13:45:27 Dose Area Product 28440 mGy/cm. 13:45:29 Procedure ended.(Physican Out) 13:45:43 Contrast amount:Isovue 370 153ml. 13:45:45 Maximum allowable dose exceeded? Yes. 13:45:46 Sharps counted by scrub and verified by R.N. 13:45:52 Post-op/insertion site Right Femoral artery dressed using a 4 x 4 and Tegaderm. 13:45:57 Post right femoral artery:stable, soft, clean and dry 13:45:59 Post Procedure Pulses reassessed and unchanged 13:46:01 Post procedure: right dorsailis pedis pulse 2+ Normal; easily identifiable; not easily obliterated. 13:46:04 Post-procedure physical assessment completed. ASA score P 2 - A patient with mild systemic disease as per Billy Giraldo MD. 13:46:09 Post procedure rhythm: unchanged. 13:46:31 Estimated blood loss: 10 ml 13:46:33 Post procedure instruction explained to patient.Patient verbalizes understanding. 13:46:33 Patient needs reinforcement of post procedure teaching. 13:48:34 Procedure and supply charges have been captured, reviewed, submitted and are correct. 13:48:39 Procedure Complication : No complications 13:48:41 Vital chart was stopped 13:48:43 [facility] Findings: MVD- PCI performed (see procedure note) 13:48:48 Operative report dictated upon procedure completion. 13:48:48 See physician's report for complete and final results. 13:48:51 Report given to Pre/Post Procedure Room. 13:48:54 Patient transfered to Pre/Post Procedure Room with Stretcher. 13:48:59 Procedure ended. 13:48:59 Full Disclosure recording stopped 13:49:08 ACC-PCI Only Patient was given prescriptions, or instructed by Billy Giraldo MD to start/continue the following medications upon discharge: Plavix 13:49:09 End room use (Document Last) 13:51:56 ACT drawn and resulted at 239 seconds. (normal therapeutic range 180-240 seconds). Intervention Summary Intervention Notes Time ActionType Lesion and Equipment Action# Pressure Duration Attributes Used 13:40:46 Place stent Proximal CHANELL OTW 4.0 1 14 00:22 Renal, x 12 stent Right ([id number]) Device Usage Item Name Manufacture Quantity Catalog Hospital Part Current Mini mal Lot# / Number Charge Number Stock Stock Serial# Code ACIST Syringe Acist 1 93707 083531 556089 175550 20 (29435) Medical Systems Inc Bag Decanter Microtek 1 904693 69863 516759 5 () Medical Inc. Medline Cath Medline 1 [id number] 923883 69229 426371 5 Pack ([id number]) ACIST Hand Acist 1 78446 157774 610832 293997 5 Control Medical (15019) Systems Inc ACIST Acist 1 88317 038495 764373 177789 5 Manifold Medical (96634) Systems Inc DIAGNOSTIC Cardinal 1 GA1503 755584 17188 552008 30 Multipack 5Fr Health catheter set (PM1638) SHEATH 5FR Terumo 1 ZVF003 362580 494940 904885 5 Ottosen (OSO008) EMERALD Guide Cardinal 1 502-455 172431 198788 951264 5 Wire Health (502-455) MULTIPACK JL Cardinal 1 765251 5 4.0 5Fr Health catheter MULTIPACK Cardinal 1 203451 5 3DRC 5Fr Health catheter MULTIPACK Cardinal 1 944833 5 Pigtail 5 Fr Health catheter INFLATOR [facility] 1 JY8913 481701 360908 050729 15 [facility] BasixCompak (XJ2038) WHISPER 300cm Monterroso 1 [id number] 522632 789542 362575 5 guide wire Vascular ([id number]) SHEATH 6FR Terumo 1 QNT080 976366 087016 532221 40 Ottosen (CSQ545) GUIDE 6FR JR Medtronic 1 [id number] 483420 07040 465943 1 4.0 catheter (SZ4PJ65) CHANELL OTW 4.0 Medtronic 1 [id number] 996593 5563728 498017 5 [id number] x 12 stent ([id number]) EXOSEAL 6Fr Cardinal 1 EX600 880358 438736 127713 10 (EX600) Health Signature Audit [place] Stage Time Signature Unsigned Intra-Procedure 10/22/2019 Sandy Simon 1:50:06 PM RT(R) Intra-Procedure 10/22/2019 Ana Horner RN 1:51:09 PM Intra-Procedure 10/22/2019 Billy Ospina 1:53:07 PM Carlos GOLD Signatures Performing Physician : Signature : Billy Giraldo MD Date : Time : Monitor : Sandy Simon Signature : RT Date : Time : Nurse : Ana Horner RN Signature : Date : Time : [address] [place] [address]
[2019-10-22 12:36] VITALS: BP 185/81; Ht 167.6 cm; Wt 59.1 kg
[2019-10-22 12:54] LABS: BASOPHILS 0.4 % (0-2); EOSINOPHILS 3.2 % (0-7); HEMATOCRIT 39.1 % (36.0-48.0); HEMOGLOBIN 12.2 g/dL (12-16); IMMATURE GRANULOCYTES 0.2 % (0-5); LYMPHOCYTES 46.4 % (15-50); MCH 28.3 pg (26.0-34.0); MCHC 31.2 g/dL (31.0-37.0); MCV 90.7 fL (80.0-100.0); MEAN PLATELET VOLUME 9.9 fL (7.4-10.4); MONOCYTES 6.7 % (2-11); NEUTROPHILS 43.1 % (40-80); PLATELET COUNT 263 10x3/uL (130-400); RBC 4.31 10x6/uL (4.00-5.40); RDW 14.9 % (11.5-14.5); WBC 4.8 10x3/uL (4.8-10.8)
[2019-10-22 13:13] LABS: ANION GAP 11.6 mmol/L (8-16); CALCIUM 9.4 mg/dL (8.5-10.1); CARBON DIOXIDE 28.4 mmol/L (21.0-32.0); CREATININE - SERUM 1.1 mg/dL (0.6-1.3)
[2019-10-22] MEDS ORDERED: MERIBIN5 MG PO (13:20)
[2019-10-22] MEDS ORDERED: LISINOPRIL10 MG PO (13:21)
[2019-10-22 13:23] LABS: CHOL - HDL RATIO 2.8 ratio (2.3-4.1); LDL-HDL RATIO 1.1 ratio (1.5-3.5)
--- NOTE | 2019-10-22 14:00 | NUR ---
PT REC'D TO ROOM 4 VIA STRETCHER FROM SCALE ADJUSTER. MONITORS ESTAB. AT BS. SEE TECHNOLOGY APPLICATIONS CONSULTANT. ALARMS ON AND C/L IN REACH.
--- NOTE | 2019-10-22 14:15 | NUR ---
PT RESTING QUIETLY. R GROIN SITE C/D/I, NO S/S BLEEDING OR SWELLING. PEDAL PULSES PALP. NO C/O PAIN. PT ABLE TO TAKE SIPS OF WATER. AT BS.
--- NOTE | 2019-10-22 14:45 | NUR ---
R GROIN SITE C/D/I, NO S/S BLEEDING OR HEMATOMA. PEDAL PULSES PALP, BRISK CAP REFILL. PT DENIES PAIN OR SOB.
--- NOTE | 2019-10-22 15:00 | NUR ---
R GROIN SITE SOFT, C/D/I, NO S/S BLEEDING OR HEMATOMA. PEDAL PULSES PALP. B/P 182/82 - PT BASE LINE, MD AWARE. AT BS. ALARMS ON AND C/L IN REACH.
--- NOTE | 2019-10-22 15:30 | NUR ---
R GROIN SITE SOFT, NO S/S BLEEDING OR HEMATOMA. VSS. PT DENIES PAIN OR NEEDS. FEET WARM WITH PALP PULSES.
--- NOTE | 2019-10-22 16:00 | NUR ---
R GROIN SITE C/D/I, NO S/S BLEEDING OR HEMATOMA. PEDAL PULSES PALP. PT RESTING QUIETLY. DENIES NEEDS OR PAIN. ALARMS ON AND C/L IN REACH.
--- NOTE | 2019-10-22 16:30 | NUR ---
PT RESTING QUIETLY, AT BS. R GROIN SITE SOFT, C/D/I. PEDAL PULSES PALP. ALARMS ON AND C/L IN REACH.
--- NOTE | 2019-10-22 17:00 | NUR ---
PT VOIDED 400ML CLEAR, YELLOW URINE IN BED HU, LAUREN-CARE PROVIDED. R GROIN SITE SOFT, NO S/S BLEEDING OR HEMATOMA. HOB ELEVATED PER MD ORDER.
--- NOTE | 2019-10-22 17:10 | NUR ---
JULIAN AIKEN PROVIDED, PT AT BS.
--- NOTE | 2019-10-22 17:30 | NUR ---
R GROIN SITE SOFT, C/D/I. PIV D/C'D INTACT, DSG APPLIED. PT ALLOWED UP TO GET DRESSED WITH ASSISTING.
--- NOTE | 2019-10-22 17:50 | NUR ---
ALL DISCHARGE INSTRUCTIONS REVIEWED WITH PT AND , INCLUDING RESTRICTIONS, MEDICATIONS AND F/U APPT.
--- NOTE | 2019-10-22 17:55 | NUR ---
PT D/C'D VIA W/C TO PRIVATE VEHICLE WITH . PT HAS ALL BELONGINGS AND PAPER WORK.
--- NOTE | 2019-10-23 11:14 | OP ---
PATIENT NAME: RADHA DASH I MEDICAL RECORD: [id number] :45 LOCATION:D.CAT ADMISSION DATE: SURGEON: CRIS ORDONEZ MD DATE OF OPERATION: 10/22/2019 PROCEDURE: Left heart catheterization, selective coronary angiography, plus renal arteriogram plus stenting to the right renal artery, right femoral artery approach. CATHETERS: A 5-Kyrgyz sheath, 5/4 left and right Hai, 5/4 pig. The procedure was well tolerated. The patient returned to the rush. Sheath removed. ExoSeal device placed. FINDINGS: Left ventriculography in 30-degree SNOW view: Normal wall motion and normal systolic function. CORONARY ANATOMY: LEFT MAIN: Left main is free of disease. LAD: LAD has mild luminal irregularities, but no flow obstructive stenosis. CIRCUMFLEX: Occluded. RIGHT CORONARY ARTERY: Previously placed stents are widely patent. No evidence of restenosis. No progression of tlingit & haida disease. SAPHENOUS VEIN GRAFT: Saphenous vein graft to the circumflex system and this is widely patent. The diagnostic catheter was then withdrawn to below the level of the diaphragm and both renal arteries were selectively engaged. The left renal artery smooth walled, free of disease. Right renal artery, upon cannulation with the diagnostic catheter, had a greater than 30 mm dampening of pressure. Angiography showed a tight stenosis of 80%. Next a 5-Kyrgyz sheath was exchanged for a 6-Kyrgyz sheath and a JR guiding catheter provided excellent guide catheter support followed by 300 cm Whisper wire, this was followed by a 4.0 x 12 mm Reagan drug-eluting stent up to 14 atmospheres. Final angiography shows excellent resolution of a 80% to 90% stenosis, no significant residual. RAKESH flow was 3 throughout the procedure. Heparin was used during the case. The patient was placed on Plavix. Sheath closed with ExoSeal device. TRANSINT:[id number] Voice Confirmation ID: [id number] DOCUMENT ID: [id number] CRIS ORDONEZ MD at 1114 CC: [id number] DICTATION DATE: 10/22/19 1353 PATENT PROSECUTION PARALEGAL: 10/23/19 0034 DEP CLI 10/22/19 [address] [place] [address]
== END 2019-10-22 17:55 | disposition home or self-care (01) ==
LOC: D.CATH 11:53
PROVIDERS: ATTEND Internal Medicine Interventional Cardiology
DX: I70.1 Atherosclerosis of renal artery (principal); I10 Essential (primary) hypertension; E78.5 Hyperlipidemia, unspecified; I25.709 Atherosclerosis of coronary artery bypass graft(s), unspecified, with unspecified angina pectoris; E11.9 Type 2 diabetes mellitus without complications; Z79.84 Long term (current) use of oral hypoglycemic drugs

== ENCOUNTER 2020-02-28 13:28 | Emergency (ER) | payer OTHER ==
[~2020-02-28] VITALS: Ht 167.6 cm; Wt 57.7 kg
[~2020-02-28 13:28] MED LIST changes: +MERIBIN5 MG PO
[2020-02-28 13:39] VITALS: Ht 167.6 cm; Wt 57.7 kg
[2020-02-28 15:09] LABS: BASOPHILS 0.2 % (0-2); EOSINOPHILS 0.2 % (0-7); HEMATOCRIT 38.5 % (36.0-48.0); HEMOGLOBIN 12.7 g/dL (12-16); IMMATURE GRANULOCYTES 0.2 % (0-5); LYMPHOCYTES 20.9 % (15-50); MCH 29.2 pg (26.0-34.0); MCV 88.5 fL (80.0-100.0); MEAN PLATELET VOLUME 9.9 fL (7.4-10.4); MONOCYTES 5.5 % (2-11); PLATELET COUNT 248 10x3/uL (130-400); RBC 4.35 10x6/uL (4.00-5.40); RDW 14.2 % (11.5-14.5); WBC 5.6 10x3/uL (4.8-10.8)
[2020-02-28 15:22] LABS: CALC OSMOLALITY 273 mosm/kg (275-300); CARBON DIOXIDE 22.7 mmol/L (21.0-32.0); CHLORIDE - SERUM 101 mmol/L (98-107); CREATININE - SERUM 1.1 mg/dL (0.6-1.3); GLUCOSE 115 mg/dL (74-106); POTASSIUM - SERUM 3.4 mmol/L (3.5-5.1); SODIUM 136 mmol/L (136-145); UREA NITROGEN 14 mg/dL (7-18); eGFR NON AFRICAN AMERICAN 51 mL/min (90-120)
[2020-02-28 15:38] LABS: ALBUMIN 3.7 g/dL (3.4-5.0); ALKALINE PHOSPHATASE 54 U/L (30-120); ALT (SGPT) 13 U/L (10-68); AMYLASE - SERUM 59 U/L (25-115); BILIRUBIN - TOTAL 0.42 mg/dL (0.2-1.3); CKMB 1.1 U/L (0.0-3.6); CREATINE KINASE 60 UL (21-215); LIPASE 104 U/L (73-393); MAGNESIUM - SERUM 1.1 mg/dL (1.8-2.4); PROTEIN - SERUM 7.3 g/dL (6.4-8.2)
[2020-02-28 15:42] LABS: BILIRUBIN NEGATIVE (NEGATIVE); KETONE MODERATE mg/dL (NEGATIVE); NITRITE NEGATIVE (NEGATIVE); UROBILINOGEN NORMAL mg/dL (< 2)
[2020-02-28] MEDS ORDERED: MECLIZINE HCL25 MG PO (18:08)
[2020-02-28] MEDS ORDERED: ZOFRAN ODT4 MG/UDTAB PO (18:08)
[2020-02-28 18:50] VITALS: BP 200/90
== END 2020-02-28 20:47 | disposition home or self-care (01) ==
LOC: D.ER 13:28
PROVIDERS: Family Medicine
DX: R42 Dizziness and giddiness (principal); E87.6 Hypokalemia; E83.42 Hypomagnesemia; R11.2 Nausea with vomiting, unspecified

== ENCOUNTER → 2020-11-04 08:18 | Outpatient (CLI) | payer MEDICARE ==
[2020-02-28 13:39] VITALS: BMI 20.5
[~2020-11-04 08:18] MED LIST changes: +MECLIZINE HCL25 MG PO; +ZOFRAN ODT4 MG/UDTAB PO
--- NOTE | 2020-11-05 08:07 | ST ---
PATIENT:RADHA DASH I MEDICAL RECORD: [id number] SEX: F LOCATION:[facility] ORDER #: ADMISSION DATE: 11/04/20 AGE OF PATIENT: 75 REFERRING PHYSICIAN: INTERPRETING PHYSICIAN: CRIS ORDONEZ MD DATE OF SERVICE: 11/04/2020 NUCLEAR STRESS TEST FINDINGS: Gated is normal, normal wall motion, normal wall thickening, calculated EF 66%. SPECT imaging: SPECT imaging in the short axis view shows a good uptake along the anterior wall, lateral wall, and inferior wall. Horizontal axis: Horizontal axis confirms good uptake along the anterior wall and inferior wall. Vertical axis: Vertical axis confirms good uptake along the lateral wall and septum FINAL IMPRESSION: 1. Normal gated, normal wall motion, EF 66%. 2. Normal SPECT imaging. FINAL RECOMMENDATION: This patient with a known history of coronary artery disease. The scan shows no evidence of previous myocardial infarction or ongoing myocardial ischemia. Continued risk factor modification and medical management is recommended. TRANSINT:[id number] Voice Confirmation ID: [id number] DOCUMENT ID: [id number] CRIS ORDONEZ MD at 0807 CC: [id number] DICTATION DATE: 11/04/20 1705 BRICK BURNER: 11/05/20 0339 DEP CLI 11/04/20 [address] [place] [address]
== END | disposition home or self-care (01) ==
LOC: D.HCCARDIO 08:18
PROVIDERS: ATTEND Internal Medicine Interventional Cardiology
DX: I25.10 Atherosclerotic heart disease of native coronary artery without angina pectoris (principal)